=== PATIENT | male | born 1945 | race Caucasian/White ===

== ENCOUNTER 2025-01-26 15:01 | Emergency (ER) | payer MEDICARE, BC ==
[~2025-01-26] VITALS: Ht 167.6 cm; Wt 73.5 kg
[2025-01-26 15:52] LABS: BASOPHILS # (AUTO) 0.1 K/UL (0.0-0.2); BASOPHILS % (AUTO) 0.8 % (0.0-2.0); EOSINOPHILS # (AUTO) 0.1 K/uL (0.0-0.7); EOSINOPHILS % (AUTO) 1.2 % (0.0-7.0); HEMOGLOBIN 14.4 g/dL (12.5-16.3); LYMPHOCYTES # (AUTO) 1.4 K/uL (0.8-4.8); LYMPHOCYTES % (AUTO) 18.8 % (20.5-51.5); MEAN CORPUSCULAR HEMOGLOBIN 31.2 uug (23.8-33.4); MEAN CORPUSCULAR HGB CONC 34 g/dL (32.5-36.3); MEAN CORPUSCULAR VOLUME 90.9 fL (73.0-96.2); MONOCYTES # (AUTO) 0.5 K/uL (0.1-1.30); MONOCYTES % (AUTO) 7.1 % (0.0-11.0); NEUTROPHILS # (AUTO) 5.3 K/uL (1.8-8.9); NEUTROPHILS % (AUTO) 72.1 % (38.5-71.5); PLATELET COUNT (AUTO) 165 K/uL (152-348); RED BLOOD CELL COUNT(AUTO) 4.62 MIL/uL (4.06-5.63); RED CELL DISTRIBUTION WIDTH 13.4 % (12.1-16.2); WHITE BLOOD COUNT (AUTO) 7.4 K/uL (3.6-10.2)
[2025-01-26] MEDS ORDERED: SWABABLE VALVE TRANSFER SET EA MC ONE (15:56)
[2025-01-26] MEDS ORDERED: IOHEXOL 350 100 ML INFUS..BTL ONE (15:56)
[2025-01-26] MEDS ORDERED: IV NORMAL SALINE 250 ML IV ONE (15:56)
[2025-01-26 16:00] LABS: DIFFERENTIAL COMMENT 1
[2025-01-26 16:02] LABS: CALCIUM 9.1 mg/dL (8.5-10.1); CARBON DIOXIDE 28 mmol/L (21-32); CHLORIDE 104 mmol/L (98-107); CREATININE 0.9 mg/dL (0.6-1.3); GLUCOSE 116 mg/dL (74-106); POTASSIUM 3.4 mmol/L (3.5-5.1); SODIUM SERUM 141 mmol/L (136-145); UREA NITROGEN, BLOOD 15 mg/dL (7-18)
[2025-01-26 16:08] LABS: ALANINE AMINOTRANSFERASE 31 U/L (16-63); ALBUMIN 3.5 g/dL (3.4-5.0); ALKALINE PHOSPHATASE 74 U/L (50-136); ASPARTATE AMINOTRANSFERASE 24 U/L (15-37); BILIRUBIN,DIRECT 0.3 mg/dL (0.0-0.2); BILIRUBIN,TOTAL 1.3 mg/dL (0.2-1.0)
[2025-01-26 16:21] LABS: *BILIRUBIN,URIN NEGATIVE (NEGATIVE); *BLOOD, URINE NEGATIVE (NEGATIVE); *CLARITY,URINE CLEAR (CLEAR); *COLOR,URINE YELLOW (YELLOW); *KETONES,URINE NEGATIVE (NEGATIVE); *PROTEIN,URINE NEGATIVE (NEGATIVE); *UROBILINOGEN,URINE 0.2 E.U./dl (NORMAL); LEUKOCYTE ESTERASE ,URINE NEGATIVE (NEGATIVE); NITRITE, URINE NEGATIVE (NEGATIVE); UGLUCOSE NEGATIVE (NEGATIVE)
[2025-01-26 17:15] VITALS: BP 143/90; O2SAT 99
== END 2025-01-26 17:16 | disposition home or self-care (01) ==
LOC: ER 15:01
DX: R42 Dizziness and giddiness (principal); R07.9 Chest pain, unspecified; E78.00 Pure hypercholesterolemia, unspecified; I10 Essential (primary) hypertension; M17.0 Bilateral primary osteoarthritis of knee
CPT/HCPCS: 36415; 70450; 70496; 71045; 84484; 85025; 85730; A4606; A4663; Q9967